=== PATIENT | female | born 1950 | race Caucasian/White ===

== ENCOUNTER 2016-07-31 06:12 | Day surgery (SDC) | payer OTHER ==
[2016-07-26 14:39] VITALS: BMI 21.4
[2016-07-31] MEDS ORDERED: LIDOCAINE HCL 2% (20ML MULTI-DOSE VIAL) NR ONE ×2 (07:33→08:23)
[2016-07-31] MEDS ORDERED: BUPIVACAINE HCL/PF 0.5% (5MG/ML) 10 ML VIAL ONE ×2 (07:33→08:23)
[2016-07-31] MEDS ORDERED: MIDAZOLAM HCL 2 MG/2 ML SINGLE DOSE VIAL ONE (08:00)
[2016-07-31] MEDS ORDERED: PROPOFOL 20 ML ONE ×3 (08:03→08:50)
[2016-07-31] MEDS ORDERED: ceFAZolin SODIUM 1 GM VIAL ONE (08:24)
--- NOTE | 2016-07-31 09:51 | OP ---
Operative Note - Note: Operative Date: 07/31/16 Pre-Operative Diagnosis: hallux valgus right foot Operation: Sinan bunionectomy with screw fixation, right foot Implants: Synthes 2.7 cortical screw x 2 Post-Operative Diagnosis: Same as Pre-op Surgeon: Nathen Urrutia Research Scientist: Van Muñoz Anesthesiologist/HEART SPECIALIST: Na De La Cruz Anesthesia: Local, MAC Specimens Removed: bone, right foot Estimated Blood Loss (mls): 5 Operative Report Dictated: Yes
[2016-07-31] MEDS ORDERED: oxyCODONE HCL 5 MG TABLET PO PRN (09:52)
[2016-07-31] MEDS ORDERED: ONDANSETRON 4 MG/2 ML VIAL IVPUSH PRN (09:58)
[2016-07-31] MEDS ORDERED: LACTATED RINGERS SOLUTION 1,000 ML IV SCH (10:00)
[2016-07-31] MEDS ORDERED: ACETAMINOPHEN 325 MG TABLET (FP) PO PRN (10:30)
[2016-07-31 11:42] VITALS: TEMP 98.6
[2016-07-31 11:58] VITALS: BP 122/74; PULSE 66
--- NOTE | 2016-08-01 16:21 | PATH ---
Surgical Pathology Report Patient Name: PAVEL MEDINA [facility]. Rec. #: [id number] /Age/Gender: 1950 (Age: 66) / F Account: [id number] Location: [facility] Taken: 07/31/2016 Received: 07/31/2016 Reported: 08/01/2016 Physicians: Nathen Urrutia DPM Specimen(s) Received BUNION RIGHT FOOT Clinical History Bunion right foot Final Diagnosis BUNION, RIGHT FOOT, BUNIONECTOMY: CARTILAGE-CAPPED BONE SHOWING DEGENERATIVE CHANGES OF OVERLYING CARTILAGE. Electronically Signed Galilea Cifuentes M.D. Gross Description Received in formalin labeled "bunion right foot," are 2 bettencourt, irregular portions of bone measuring 0.8 x 0.7 x 0.1 cm and 1.8 x 1.3 x 0.3 cm. Director Of Diversity And Inclusion sections are submitted in one cassette, following decalcification. /07/31/2016 saudi/07/31/2016
--- NOTE | 2016-08-02 06:28 | OP ---
DATE OF OPERATION: 07/31/2016 PREOPERATIVE DIAGNOSIS: Right foot hallux valgus. POSTOPERATIVE DIAGNOSIS: Right foot hallux valgus. PROCEDURE: Bunionectomy with screw fixation, right foot. SURGEON: Nathen Urrutia DPM QUALIFIED CRAFT WORKER ELECTRICIAN: Dr. Muñoz and Dr. Govea, PGY-3, [facility] ANESTHESIA: Local with IV sedation. HEMOSTASIS: Pneumatic ankle tourniquet. ESTIMATED BLOOD LOSS: Minimal. PATHOLOGY: Bone, right foot. COMPLICATIONS: None. DESCRIPTION OF PROCEDURE: The patient was brought to the operating room and placed on the operating table in the supine position. Following the induction of IV sedation, local anesthesia was achieved utilizing 12 mL of 2% lidocaine plain. A pneumatic ankle tourniquet was placed about the patients right ankle and set to 250 mmHg. The right foot was then scrubbed, prepped, and draped in the usual aseptic fashion. The tourniquet was inflated, and the procedure began. Attention was directed to the right hallux valgus deformity where a 5-cm linear longitudinal incision was made overlying the 1st metatarsophalangeal joint. The incision was deepened using sharp and blunt dissection taking care to retract vital neural and vascular structures. All bleeders were cauterized and ligated as needed. Next a dorsal linear capsulotomy was performed about the 1st metatarsophalangeal joint. The periosteum was reflected medially and laterally to expose the 1st metatarsal head. Using the sagittal saw, the dorsal medial eminence was resected from the 1st metatarsal head. This was removed from the operative field and sent to Pathology. Next, dissection continued into the 1st interspace using sharp and blunt dissection. A capsulotomy laterally and adductor tendon release was performed, which achieved appropriate reduction at the level of the 1st metatarsophalangeal joint. The hallux valgus deformity was well reduced at this point. Next, the sagittal saw was used to create a Chevron osteotomy. Of note, the 1st metatarsal head was noted to be cystic in its changes. Therefore, the decision was made to perform the osteotomy proximal to accommodate for the cystic changes. A Chevron osteotomy was performed. The dorsal arm was oriented longer than the plantar to accommodate for fixation and to account for the cystic changes in the metatarsal head. Once the osteotomy was complete, the distal fragment was translated laterally into an improved position and temporarily fixated with the use of a single K-wire. Next, two 2.7 Synthes cortical screws were introduced across the osteotomy site achieving excellent compression and fixation. Range of motion at the 1st metatarsophalangeal joint was appropriate. Positioning and fixation was validated, and the provisional K-wire fixative was removed. The redundant medial shelf of bone was resected with the sagittal saw, and a rasp was used to smooth rough edges of bone. The screw tightness and positioning was validated further. Following the conclusion of the procedure, the surgical site was copiously irrigated with sterile saline. The deep capsular and periosteal structures were reapproximated and maintained utilizing 3-0 Vicryl. Subcutaneous tissue was reapproximated and maintained utilizing 4-0 Vicryl. The skin was coapted and maintained utilizing 40 nylon in a simple interrupted suture fashion. Following the conclusion of the procedure, approximately 8 mL of 0.5% Marcaine plain were infiltrated about the surgical site for postoperative analgesia. The incision was covered with Adaptic, and a sterile compressive dressing was applied to the right foot consisting of sterile gauze, Marci, Kerlix, and an Warner wrap. The tourniquet was deflated, and immediate hyperemia returned to the right foot. The patient tolerated the procedure and anesthesia well without complications. She was transferred from the operating room to the recovery unit with vital signs stable and neurovasculature intact to the right foot. NANO MARTÍNEZ/[id number] cc: [facility]
== END 2016-07-31 12:06 | disposition home or self-care (01) ==
LOC: FASU 06:12
PROVIDERS: ATTEND Student in an Organized Health Care Education/Training Program
PROC: 0QSN04Z Reposition Right Metatarsal with Internal Fixation Device, Open Approach (ICD-10-PCS; principal; 2016-07-31 08:36)
DX: M20.11 Hallux valgus (acquired), right foot (principal)
CPT/HCPCS: 73630-TC-RT; 88304-TC; 88311-TC; 94760

== ENCOUNTER 2017-09-02 07:30 | Emergency (ER) | payer OTHER ==
--- NOTE | 2017-09-02 07:32 | PDOC ---
History of Present Illness - General Chief Complaint: Lightheaded Stated Complaint: VERTIGO Time Seen by Provider: 09/02/17 07:32 - History of Present Illness Initial Comments: 09/02/17 07:43 67yo female presents ambulatory from home for eval of dizziness. Pt states she has a hx of vertigo. States she had an episode about 3 months ago for which she saw her PMD and was told to do exercises at home, which resolved the vertigo. States she woke up yesterday and felt the room spin. States she felt congested as well yesterday. States overnight she had 4 episodes of vomiting and this AM feels dehydrated and vertiginous/nauseated. Pt states vomiting was nb/nb. States 1 episode of loose stool yesterday morning. Denies f/c. No gant. No blurred vision. No neck pain. No cp/sob/cough. No sore throat. No abd pain. No dysuria. No recent abx. No other complaints. Pmhx: migraines, BPPV Pshx: foot sx Allergies: codeine Home meds: fioricet, zomig 09/02/17 07:[address] Romo Past History - Past Medical History Allergies/Adverse Reactions: Allergies Allergy/AdvReac Type Severity Reaction Status Date / Time codeine Allergy Severe Nausea Verified 09/02/17 07:36 Home Medications: Ambulatory Orders Acetaminophen/Caffeine/Butalb [Fioricet -] 1 tab PO PRN PRN 09/02/17 Meclizine HCl [Antivert -] 25 mg PO TID PRN #15 tablet 09/02/17 Ondansetron [Zofran Odt -] 4 mg SL TID PRN #15 od.tablet 09/02/17 Anemia: No Asthma: No Cancer: No Cardiac Disorders: No CVA: No COPD: No CHF: No Dementia: No Diabetes: No GI Disorders: No Disorders: No HTN: No Hypercholesterolemia: No Liver Disease: No Seizures: No Thyroid Disease: No - Surgical History Abdominal Surgery: No Appendectomy: No Cardiac Surgery: No Cholecystectomy: No Lung Surgery: No Neurologic Surgery: No Orthopedic Surgery: Yes (LEFT FOOT BUNIONECTOM 14 YEARS AGO) - Suicide/Smoking/Psychosocial Hx Smoking History: Never smoked Hx Alcohol Use: Yes (OCCASIONAL) Drug/Substance Use Hx: No Substance Use Type: None Hx Substance Use Treatment: No Review of Systems - Review of Systems Able to Perform ROS?: Yes Is the patient limited [place]ral[place] proficient: No Constitutional: Yes: Weakness. No: Chills, Fever HEENTM: Yes: Nose Congestion. No: Eye Pain, Blurred Vision, Throat Pain, Throat Swelling Respiratory: No: Cough, Shortness of Breath Cardiac (ROS): No: Chest Pain, Irregular Heart Rate ABD/GI: Yes: Diarrhea, Nausea, Vomiting. No: Abdominal cramping : No: Burning, Dysuria Integumentary: No: Rash Neurological: Yes: Dizziness. No: Headache, Numbness, Paresthesia, Tingling, Weakness All Other Systems: Reviewed and Negative *Physical Exam - Vital Signs 09/02/17 07:48 Selected Entries 09/02/17 07:31 Temperature 98.8 F Pulse Rate 77 Respiratory 20 Rate Blood Pressure 150/88 Blood Pressure 108 Mean O2 Sat by Pulse 99 Oximetry (%) Weight 61.235 kg - Physical Exam General Appearance: Yes: Nourished, Appropriately Dressed, Other (appears uncomfortable) HEENT: positive: EOMI, ANGEL LUIS, Normal ENT Inspection, Pharynx Normal. negative: Pharyngeal Erythema, Nasal Congestion, Rhinorrhea, Sinus Tenderness, TM Bulging , TM Erythema Neck: positive: Trachea midline, Supple. negative: Tender, Rigid Respiratory/Chest: positive: Lungs Clear, Normal Breath Sounds. negative: Respiratory Distress Cardiovascular: positive: Regular Rhythm, Regular Rate, S1, S2 Gastrointestinal/Abdominal: positive: Normal Bowel Sounds, Flat, Soft. negative : Tender, Guarding, Rebound, Tenderness Musculoskeletal: positive: Normal Inspection, Other (ambulatory with a steady gait) Extremity: positive: Normal Capillary Refill, Normal Inspection, Normal Range of Motion. negative: Calf Tenderness Integumentary: positive: Normal Color, Dry, Warm. negative: Rash Neurologic: positive: Fully Oriented, Alert, Normal Mood/Affect, Normal Response , Motor Strength 5/5, Finger to Nose, Other (R horizontal nystagmus otherwise cn ii-xii grossly intact). negative: Sensory Deficit Heart Score/ECG Review - ECG Intrepretation Comment:: 09/02/17 09:20 sinus at 68, nl axis, nl interval, no acute st/t wave findings ED Treatment Course - LABORATORY CBC & Chemistry Diagram: 09/02/17 08:20 05/27/18 07:58 Medical Decision Making - Medical Decision Making 09/02/17 07:50 a/p: 67yo female with hx of vertigo with vertiginous symptoms since yesterday morning -has never followed up with neuro or ENT for eval of her vertigo or headaches -pt appears mildly dehydrated on exam -will place iv, labs, ekg -will give ivf hydration and reglan for both GANT and vertigo -neuro intact without focal deficits -recent nasal congestion/allergies may be cause of vertigo -will recommend outpt follow up with ENT and Neuro 09/02/17 08:20 re-eval: pt feeling better, nausea resolved. 09/02/17 09:04 labs reviewed normal wbc, h/h renal function and liver function intact re-eval: pt feeling much better. all symptoms resolved. no nausea. no dizziness. no nystagmus. able to change positions without symptoms. will send Rx for meclizine and zofran to [facility]. 09/02/17 09:20 pt ambulatory in the ED discussed all reasons to return to the ED and need for follow up next week with her doctors. answered all questions. Stable for d/c to home. *DC/Admit/Observation/Transfer Diagnosis at time of Disposition: Vertigo - Discharge Dispostion Disposition: HOME Condition at time of disposition: Stable Decision to Admit order: No - Prescriptions Prescriptions: Meclizine HCl [Antivert -] 25 mg PO TID PRN #15 tablet PRN Reason: Vertigo Ondansetron [Zofran Odt -] 4 mg SL TID PRN #15 od.tablet PRN Reason: Nausea - Referrals Referrals: Lauro Mojica MD [Staff Physician] - Jass Geronimo MD [Staff Physician] - Natasha Russell MD [Provisional Medical Staff] - - Patient Instructions Printed Discharge Instructions: DI for Vertigo Additional Instructions: Please make an appointment to see the neurologist and the ENT. Please follow up with your PMD. Please drink plenty of fluids. Please take all medications as prescribed. Please return to the ED with any further concerns or complaints. - Post Discharge Activity - Attestations Physician Attestion: 09/02/17 08:49 IDr. Hillary, DO, attest that this document has been prepared under my direction and personally reviewed by me in its entirety. I further attest, that it accurately reflects all work, treatment, procedures and medical decision -making performed by me.
[2017-09-02] MEDS ORDERED: METOCLOPRAMIDE HCL INJECTION 10 MG/2 ML VIAL IVPUSH ONE (07:42)
[2017-09-02] MEDS ORDERED: SODIUM CHLORIDE 0.9% 1000 ML INFUS.BAG IV ONE (07:42)
[2017-09-02 07:46] VITALS: BP 150/88; PULSE 77; TEMP 98.8; BMI 21.1
[2017-09-02] MEDS ORDERED: MECLIZINE HCL 25 MG TABLET (FP) PO ONE (08:11)
[2017-09-02] MEDS ORDERED: MECLIZINE HCL 25 MG TABLET (FP) ONE (08:31)
[2017-09-02 08:43] LABS: BASO % 1.1 % (0-2.0); EOS % 0.2 % (0-4.5); HEMATOCRIT 41.1 % (32.4-45.2); HEMOGLOBIN 13.8 GM/dl (10.7-15.3); LYMPH % 20.8 % (8-40); MCH 28.8 pg (25.7-33.7); MCHC 33.4 g/dl (32.0-36.0); MEAN PLT VOLUME 10.5 fl (7.5-11.1); MONO % 7.2 % (3.8-10.2); NEUT % 70.7 % (42.8-82.8); PLATELET COUNT 218 K/MM3 (134-434); RBC 4.78 M/mm3 (3.60-5.2); RDW 12.2 % (11.6-15.6); WHITE BLOOD COUNT 5.6 K/mm3 (4.0-10.8)
[2017-09-02 08:50] LABS: ALK PHOS 53 U/L (32-92); ANION GAP 7 (8-16); BILIRUBIN,TOTAL 0.5 mg/dl (0.2-1.0); BLOOD UREA NITROGEN 11 mg/dl (7-18); CALCIUM 9.1 mg/dl (8.4-10.2); CHLORIDE 105 mmol/L (98-107); CO2 24 mmol/L (22-28); CREATININE 0.5 mg/dl (0.6-1.3); GLUCOSE,RANDOM 114 mg/dl (74-106); MAGNESIUM 1.8 mg/dL (1.8-2.4); POTASSIUM 3.7 mmol/L (3.5-5.1); SGOT/AST 19 U/L (10-42); SGPT/ALT 14 U/L (10-40); SODIUM 136 mmol/L (136-145); TOT PROT 6.6 g/dl (6.4-8.3)
--- NOTE | 2017-09-02 10:07 | EKG ---
Test Reason : Blood Pressure : / mmHG Vent. Rate : 068 BPM Atrial Rate : 068 BPM P-R Int : 132 ms QRS Dur : 086 ms QT Int : 426 ms P-R-T Axes : 080 080 067 degrees QTc Int : 452 ms NORMAL SINUS RHYTHM NORMAL ECG WHEN COMPARED WITH ECG OF 25-JUL-2016 11:07, NO SIGNIFICANT CHANGE WAS FOUND Confirmed by NITESH ALEXANDER MD ([id number]) on 09/02/2017 10:06:28 AM Referred By: Confirmed By:NITESH ALEXANDER MD
== END 2017-09-02 09:40 | disposition home or self-care (01) ==
LOC: FER 07:30
PROC: 3E033GC Introduction of Other Therapeutic Substance into Peripheral Vein, Percutaneous Approach (ICD-10-PCS; principal; 2017-09-02)
PROC: 3E0337Z Introduction of Electrolytic and Water Balance Substance into Peripheral Vein, Percutaneous Approach (ICD-10-PCS; 2017-09-02)
DX: R42 Dizziness and giddiness (principal)
CPT/HCPCS: 36415; 80053; 83735; 85025; 93005; 99282-25; J7030

== ENCOUNTER 2021-08-18 09:51 | Emergency (ER) | payer OTHER ==
[2021-08-18 10:09] VITALS: BMI 21.1
[2021-08-18] MEDS ORDERED: BEBTELOVIMAB (EUA) 175 MG/2 ML VIAL IVPUSH ONE (10:14)
[2021-08-18] MEDS ORDERED: METOCLOPRAMIDE HCL INJECTION 10 MG/2 ML VIAL IVPB ONE (10:33)
[2021-08-18] MEDS ORDERED: ACETAMINOPHEN 1000 MG/100 ML BAG IVPB ONE (10:33)
[2021-08-18] MEDS ORDERED: SODIUM CHLORIDE 0.9% 500 ML INFUS.BAG IV ONE (10:33)
[2021-08-18] MEDS ORDERED: METOCLOPRAMIDE HCL INJECTION 10 MG/2 ML VIAL ONE (11:14)
[2021-08-18] MEDS ORDERED: ACETAMINOPHEN INJECTION 100 ML IVPB ONE (11:14)
[2021-08-18 12:14] VITALS: BP 134/76; PULSE 72; TEMP 98.3
== END 2021-08-18 11:00 | disposition home or self-care (01) ==
LOC: JCOVINFU 09:51
PROC: 3E033GC Introduction of Other Therapeutic Substance into Peripheral Vein, Percutaneous Approach (ICD-10-PCS; principal; 2021-08-18)
DX: U07.1 COVID-19 (principal); J02.9 Acute pharyngitis, unspecified
CPT/HCPCS: 99284-25; M0222; Q0222

== ENCOUNTER 2023-08-15 14:18 | Emergency (ER) | payer OTHER, MEDICARE ==
[2023-08-15 14:39] VITALS: BMI 21.4
[2023-08-15] MEDS ORDERED: ACETAMINOPHEN 325 MG TABLET (FP) ONE (15:02)
[2023-08-15] MEDS: ACETAMINOPHEN 325 MG TABLET (FP) PO ONE (15:04)
[2023-08-15] MEDS ORDERED: POTASSIUM CHLORIDE ORAL LIQUID 20 MEQ/15 ML ONE (15:32)
[2023-08-15] MEDS: LACTATED RINGERS SOLUTION 1000 ML INFUS.BAG IV ONE (15:43)
[2023-08-15] MEDS ORDERED: ONDANSETRON 4 MG/2 ML VIAL ONE (15:45)
[2023-08-15] MEDS: ONDANSETRON 4 MG/2 ML VIAL IVPUSH ONE (15:48)
[2023-08-15 16:15] VITALS: RESP 16
[2023-08-15] MEDS ORDERED: FAMOTIDINE 20 MG TABLET ONE (16:37)
[2023-08-15] MEDS ORDERED: IBUPROFEN 400 MG TABLET (FP) PO ONE (16:37)
[2023-08-15] MEDS: IBUPROFEN 400 MG TABLET (FP) PO ONE (16:43)
[2023-08-15] MEDS: FAMOTIDINE 20 MG TABLET PO ONE (16:44)
[2023-08-15 18:23] VITALS: BP 119/85; PULSE 80; TEMP 98.8
== END 2023-08-15 18:42 | disposition home or self-care (01) ==
LOC: FER 14:18
PROC: 3E030GC Introduction of Other Therapeutic Substance into Peripheral Vein, Open Approach (ICD-10-PCS; principal; 2023-08-15)
DX: R50.9 Fever, unspecified (principal); R00.0 Tachycardia, unspecified; R11.2 Nausea with vomiting, unspecified
CPT/HCPCS: 99284-25

== ENCOUNTER 2023-08-20 10:52 | Emergency (ER) | payer OTHER, MEDICARE ==
[2023-08-20 11:09] VITALS: RESP 16; TEMP 98; BMI 21.4
[2023-08-20] MEDS ORDERED: cefTRIAXone SODIUM 1 GM VIAL ONE (12:00)
[2023-08-20] MEDS ORDERED: AZITHROMYCIN 500 MG VIAL IVPB ONE (12:00)
[2023-08-20] MEDS: SODIUM CHLORIDE 1,000 ML IV STA (12:00)
[2023-08-20] MEDS: CEFTRIAXONE 1 GM in DEXTROSE 5%-WATER - 100 ML IVPB ONE (12:05)
[2023-08-20 12:16] LABS: HEMOGLOBIN 12.8 G/dL (10.7-15.3); MCH 28.6 pg (25.7-33.7); MCHC 32.7 g/dl (32.0-36.0); MEAN CELL VOLUME 87.4 fl (80-96); MEAN PLT VOLUME 8.6 fl (7.5-11.1); PLATELET COUNT 294.6 10^3/uL (134-434); RBC 4.46 10^6/uL (3.60-5.2); RDW 15.5 % (11.6-15.6)
[2023-08-20] MEDS: AZITHROMYCIN IVPB 500 MG in DEXTROSE 5%-WATER - 250 ML IVPB ONE (12:40)
[2023-08-20 12:58] LABS: ALBUMIN 3.4 g/dl (3.4-5.0); ALK PHOS 566 U/L (45-117); ANION GAP 11 mmol/L (4-13); BILIRUBIN,TOTAL 1.1 mg/dl (0.2-1); CALCIUM 9.1 mg/dl (8.5-10.1); CHLORIDE 103 mmol/L (98-107); CO2 25 mmol/L (21-32); CREATININE 0.7 mg/dl (0.6-1.3); GLUCOSE,RANDOM 109 mg/dl (74-106); POTASSIUM 3.9 mmol/L (3.5-5.1); SGOT/AST 55 U/L (15-37); SGPT/ALT 108 U/L (7-52); SODIUM 139 mmol/L (136-145)
[2023-08-20 13:24] LABS: EPITHELIAL CELLS 0-5 /hpf
[2023-08-20 13:57] VITALS: BP 124/70; PULSE 104
[2023-08-20 14:16] LABS: PLATELET ESTIMATE ADEQUATE
== END 2023-08-20 15:39 | disposition home or self-care (01) ==
LOC: FER 10:52 → SUPCPDRO 10:52 → FER 15:39
DX: R50.9 Fever, unspecified (principal); J02.9 Acute pharyngitis, unspecified; R05.9 Cough, unspecified; J18.9 Pneumonia, unspecified organism
CPT/HCPCS: 36415; 71046-TC-FY; 76705-TC; 80053; 81003; 81015; 85027; 87040; 87086; 87633; 87651; 93005; 99285-25